=== PATIENT | female | born 1965 | race Caucasian/White ===

== ENCOUNTER 2017-10-28 12:00 | Emergency (ER) | payer MEDICAID, MEDICARE ==
[~2017-10-28] VITALS: Ht 154.9 cm; Wt 89.6 kg
[~2017-10-28 12:00] MED LIST: FASL250I IM; HYDR-3533 PO; ZOFR4TAB3 SL
[2017-10-28 12:22] VITALS: BP 190/98; PULSE 91; RESP 16; TEMP 98.3; O2SAT 96
[2017-10-28] MEDS ORDERED: ACETAMINOPHEN/HYDROcodone 325 MG/5 MG TAB PO ONE (12:45)
[2017-10-28] MEDS ORDERED: GABA400C5 PO (12:52)
[2017-10-28] MEDS ORDERED: HYDR-3516 PO ×2 (12:52→13:11)
[2017-10-28] MEDS ORDERED: FASL250I (12:52)
--- NOTE | 2017-10-28 13:06 | PD ---
HPI Chief Complaint: Injury Time Seen by Provider: 12:28 Travel History International Travel<30 days: No Contact w/Intl Traveler<30days: No Traveled to known affect area: No History of Present Illness HPI 52-year-old female that presents to the ED for evaluation of right elbow pain. Per patient she has a call yesterday into the right elbow. She's been having pain ever since. Per patient the pain did not improve and she is having some swelling which she is concerned about. States having a previous injury to the elbow which sounds like she had a muscle tear to had to be repaired. She denies any head injury or loss of consciousness. No other injury. Per patient she yesterday because she was at a wedding. Denies any hallucinations. No blood thinners. Pain per patient is 7 out of 10 and gets worse with any movement of the elbow. No numbness, tilling, weakness. Allergy to ibuprofen. PFSH Past Medical History Heart Rhythm Problems: No Cancer: Yes (BREAST- current po chemo ) Cardiac Catheterization: No Cardiovascular Problems: No High Cholesterol: No Chemotherapy: Yes (last dose - shot 05/02/16 ) Congestive Heart Failure: No Diabetes: No Diminished Hearing: No Endocrine: No Gastrointestinal Disorders: No Genitourinary: No Hepatitis: No Hiatal Hernia: No Heparin Induced Thrombocytopen: No Hypertension: No Immune Disorder: No Musculoskeletal: No Neurologic: No Psychiatric: No Reproductive: No Respiratory: No Thyroid Disease: No ?: Not Menopausal: Yes Tubal Ligation: Yes Past Surgical History Abdominal Surgery: Yes (CHOLECYSTECTOMY) AICD: No Section: Yes (X2) Cholecystectomy: Yes Gynecologic Surgery: Yes (C SECTION) Hysterectomy: No Joint Replacement: No Mastectomy: Yes (RIGHT) Pacemaker: No Tonsillectomy: Yes Other Surgery: Yes (PORT -- NOW REMOVED, right foot) Family History Family Myocardial Infarction: No Social History Alcohol Use: Yes Tobacco Use: Yes (4 cigs a day) Substance Use: No (ALCOHOL ABUSE) Allergies-Medications (Allergen,Severity, Reaction): Coded Allergies: ibuprofen (Unverified Adverse Reaction, Severe, Nausea/Vomiting, 10/28/17) pt states does not have a allergy to this medication 10/28/17 JFoley Reported Meds & Prescriptions Reported Meds & Active Scripts Active Hydrocodone-Acetamin 5-325 mg (Hydrocodone/Acetaminophen) 5 Mg-325 Mg Tablet 1 Tab PO Q6HR PRN Reported Faslodex Inj (Fulvestrant) 250 Mg/5 Ml Syr Hydrocodone-Acetaminophen 5-325 mg Tab 1 Tab PO Q4H PRN Gabapentin 400 Mg Cap 400 Cap PO HS Review of Systems Except as stated in HPI: all other systems reviewed are Neg Physical Exam Narrative GENERAL: SKIN: Warm and dry. HEAD: Atraumatic. Normocephalic. EYES: Pupils equal and round. No scleral icterus. No injection or drainage. ENT: No nasal bleeding or discharge. Mucous membranes pink and moist. NECK: Trachea midline. No JVD. CARDIOVASCULAR: Regular rate and rhythm. RESPIRATORY: No accessory muscle use. Clear to auscultation. Breath sounds equal bilaterally. GASTROINTESTINAL: Abdomen soft, non-tender, nondistended. Hepatic and splenic margins not palpable. MUSCULOSKELETAL: Extremities without clubbing, cyanosis, or edema. No obvious deformities. Full range of motion of the upper and lower extremities bilaterally. 2+ pulses bilaterally. Patient has pain with extension and flexion of the right arm. Some soft tissue swelling noted on the olecranon area. She does have an abrasion in this area as well. Full range of motion of the wrist. Sensation intact. 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 NEUROLOGICAL: Awake and alert. No obvious cranial nerve deficits. Motor grossly within normal limits. Five out of 5 muscle strength in the arms and legs. Normal speech. PSYCHIATRIC: Appropriate mood and affect; insight and judgment normal. Data Data Last Documented VS Vital Signs Date Time Temp Pulse Resp B/P (MAP) Pulse Ox O2 Delivery O2 Flow Rate FiO2 10/28/17 12:22 98.3 91 16 190/98 (128) 96 Orders Orders Elbow, Complete (4 Vws) (10/28/17 ) Acetamin-Hydrocod 325-5 Mg ([place] 5-325 (10/28/17 12:45) Splint Or Brace Apply/Monitor (10/28/17 13:10) MDM Medical Decision Making Medical Screen Exam Complete: Yes Emergency Medical Condition: Yes Medical Record Reviewed: Yes Interpretation(s) xray of elbow showed no bony injuries but moderate joint effusion Differential Diagnosis Fracture versus sprain versus strain versus versus contusion Narrative Course 52-year-old female that presents to the ED for evaluation of right elbow pain. Patient was properly examined and was found to have signs and symptoms concerning for fractures. Pressures were ordered. Patient was given pain medication. X-ray showed no sign of fracture what appears to be other effusion. I reviewed the x-rays with my attending and patient does appear to have several sign. Possible radial head fracture. Patient can bend and elbow without significant discomfort. This time I recommend splinting and follow up with orthopedic doctor. Patient given a prescription for Lortab. Follow with PCP. See ED worsening symptoms. Diagnosis Primary Impression: Elbow injury Qualified Codes: S59.901A - Unspecified injury of right elbow, initial encounter Patient Instructions: General Instructions, Narcotic given in the ED Additional Instructions: Take medications as prescribed. Follow-up with PCP. See ED for any worsening symptoms. Do not drink or drive while taking pain medication. Apply ice or heat as needed for pain Med/Other Pt SpecificInfo: Prescription(s) given Scripts Hydrocodone/Acetaminophen (Hydrocodone-Acetamin 5-325 mg) 5 Mg-325 Mg Tablet 1 TAB PO Q6HR Y for PAIN SCALE 1 TO 10, #14 Prov: Juan Jaramillo MD 10/28/17 Disposition: 01 DISCHARGE HOME Condition: Stable Mathew Robert Oct 28, 2017 13:06
--- NOTE | 2017-10-28 13:16 | RADRPT ---
EXAM DATE/TIME: 10/28/2017 13:04 [facility] COMPARISON: ELBOW RIGHT COMPLETE (4 VWS), May 19, 2016, 0:46. INDICATIONS : Fell on right elbow yesterday, has pain, limited ROM MEDICAL HISTORY : Carcinoma, breast. SURGICAL HISTORY : Mastectomy, right. Right elbow surgery ENCOUNTER: Initial ACUITY: 2 days PAIN SCORE: 10/10 LOCATION: Left elbow FINDINGS: Moderate joint effusion is evident. Fracture is not appreciated. Mild degenerative changes are evid ent. CONCLUSION: Moderate joint effusion. In spite of effusion I do not see definite fracture. Followup in 7-10 day' s is suggested if symptoms persist. Emile Carter MD FACR on October 28, 2017 at 13:13 Board Certified Radiologist. This report was verified electronically.
== END 2017-10-28 14:21 | disposition home or self-care (01) ==
LOC: PHEFT 12:00
DX: S59.901A Unspecified injury of right elbow, initial encounter (principal); Z72.0 Tobacco use; Z85.3 Personal history of malignant neoplasm of breast
CPT/HCPCS: 29105; 73080

== ENCOUNTER 2017-10-29 18:04 | Emergency (ER) | payer MEDICARE ==
[~2017-10-29] VITALS: Ht 154.9 cm; Wt 91.0 kg
[~2017-10-29 18:04] MED LIST changes: +FASL250I; -FASL250I IM; +GABA400C5 PO; +HYDR-3516 PO; -HYDR-3533 PO; -ZOFR4TAB3 SL
[2017-10-29 18:18] VITALS: BP 183/85; PULSE 92; RESP 16; TEMP 97.9; O2SAT 96
--- NOTE | 2017-10-29 19:59 | PD ---
HPI Chief Complaint: Co Teacher Problem Time Seen by Provider: 19:56 Travel History International Travel<30 days: No Contact w/Intl Traveler<30days: No Traveled to known affect area: No History of Present Illness HPI 52-year-old female that presents to the ED for evaluation of splint being tight. Patient was seen here by me on Sunday for evaluation of an injury to her elbow. Patient had a splint and per patient she was doing okay except that on the hand her hand was very tight and she could barely move and she had more pain on the hand that she had on the elbow. She denies any other injuries. She states that she's been compliant with the treatment plan. She has not follow with the orthopedic surgeon as of yet. Allergy to ibuprofen. Has been taking pain medication. No other medical issues. Pain per patient was 7 out of 10 on the hand. Denies any numbness, tilling, weakness. PFSH Past Medical History Heart Rhythm Problems: No Cancer: Yes (BREAST- current po chemo ) Cardiac Catheterization: No Cardiovascular Problems: No High Cholesterol: No Chemotherapy: Yes (last dose - shot 05/02/16 ) Congestive Heart Failure: No Diabetes: No Diminished Hearing: No Endocrine: No Gastrointestinal Disorders: No Genitourinary: No Hepatitis: No Hiatal Hernia: No Heparin Induced Thrombocytopen: No Hypertension: No Immune Disorder: No Musculoskeletal: No Neurologic: No Psychiatric: No Reproductive: No Respiratory: No Thyroid Disease: No Tetanus Vaccination: > 5 Years ?: Not Menopausal: Yes Tubal Ligation: Yes Past Surgical History Abdominal Surgery: Yes (CHOLECYSTECTOMY) AICD: No Section: Yes (X2) Cholecystectomy: Yes Gynecologic Surgery: Yes (C SECTION) Hysterectomy: No Joint Replacement: No Mastectomy: Yes (RIGHT) Pacemaker: No Tonsillectomy: Yes Other Surgery: Yes (PORT -- NOW REMOVED, right foot) Social History Alcohol Use: Yes Tobacco Use: Yes (4 cigs a day) Substance Use: No (ALCOHOL ABUSE) Allergies-Medications (Allergen,Severity, Reaction): Coded Allergies: ibuprofen (Unverified Adverse Reaction, Severe, Nausea/Vomiting, 10/29/17) pt states does not have a allergy to this medication 10/28/17 JFoley Reported Meds & Prescriptions Reported Meds & Active Scripts Active Hydrocodone-Acetamin 5-325 mg (Hydrocodone/Acetaminophen) 5 Mg-325 Mg Tablet 1 Tab PO Q6HR PRN Reported Faslodex Inj (Fulvestrant) 250 Mg/5 Ml Syr Hydrocodone-Acetaminophen 5-325 mg Tab 1 Tab PO Q4H PRN Gabapentin 400 Mg Cap 400 Cap PO HS Review of Systems Except as stated in HPI: all other systems reviewed are Neg Physical Exam Narrative GENERAL: SKIN: Warm and dry. HEAD: Atraumatic. Normocephalic. EYES: Pupils equal and round. No scleral icterus. No injection or drainage. ENT: No nasal bleeding or discharge. Mucous membranes pink and moist. NECK: Trachea midline. No JVD. CARDIOVASCULAR: Regular rate and rhythm. RESPIRATORY: No accessory muscle use. Clear to auscultation. Breath sounds equal bilaterally. GASTROINTESTINAL: Abdomen soft, non-tender, nondistended. Hepatic and splenic margins not palpable. MUSCULOSKELETAL: Extremities without clubbing, cyanosis, or edema. No obvious deformities. Full range of motion of the upper and lower extremities bilaterally. Patient has a splint to the right elbow. Patient able to move all fingers but definite has some tightness. No soft tissue swelling noted. Good capillary refill. NEUROLOGICAL: Awake and alert. No obvious cranial nerve deficits. Motor grossly within normal limits. Five out of 5 muscle strength in the arms and legs. Normal speech. PSYCHIATRIC: Appropriate mood and affect; insight and judgment normal. Data Data Last Documented VS Vital Signs Date Time Temp Pulse Resp B/P (MAP) Pulse Ox O2 Delivery O2 Flow Rate FiO2 10/29/17 19:56 Room Air 10/29/17 18:18 97.9 92 16 183/85 (117) 96 Orders Orders Ed Discharge Order (10/29/17 19:56) Mandatory Outpatient Referral (10/29/17 19:59) [facility] Medical Decision Making Medical Screen Exam Complete: Yes Emergency Medical Condition: Yes Medical Record Reviewed: Yes Differential Diagnosis Splint recheck versus fracture versus normal exam Narrative Course 52-year-old female that presents to the ED for evaluation of right elbow pain. Patient was properly examined and was found to have signs and symptoms consistent with appears to be splint being too tight. This was redone by the training technician with improvement of symptoms. Patient is sensitive to follow with orthopedic surgeon. Did place a mandatory referral for her. Told to continue taking pain medications. See ED worsening symptoms. Follow with PCP. Diagnosis Primary Impression: Elbow injury Qualified Codes: S59.901A - Unspecified injury of right elbow, initial encounter Referrals: Chas Petersen MD Patient Instructions: General Instructions Additional Instructions: Follow up with orthopaedic surgeon. See ED if worst. Med/Other Pt SpecificInfo: No Change to Meds Disposition: 01 DISCHARGE HOME Condition: Stable Mathew Robert Oct 29, 2017 19:59
== END 2017-10-29 20:04 | disposition home or self-care (01) ==
LOC: PHEFT 18:04
DX: M25.521 Pain in right elbow (principal); F17.210 Nicotine dependence, cigarettes, uncomplicated; Z47.89 Encounter for other orthopedic aftercare; Z79.899 Other long term (current) drug therapy; Z88.6 Allergy status to analgesic agent
CPT/HCPCS: 99281